=== PATIENT | female | born 1960 | race Caucasian/White ===

== ENCOUNTER 2016-03-14 15:22 | Inpatient (IN) | payer OTHER ==
[~2016-03-14] VITALS: Ht 162.6 cm; Wt 58.1 kg
[2016-03-14 16:52] VITALS: BP 139/63; PULSE 110; TEMP 97.5
[2016-03-14 17:26] VITALS: BP 139/63; PULSE 110; TEMP 97.5
[2016-03-14 20:48] VITALS: BP 107/63; PULSE 110; TEMP 97.8
[2016-03-15] VITALS (7 sets, daily range): BP systolic 101–121; BP diastolic 46–68; PULSE 114–117; TEMP 97.7–98.9
[2016-03-15 07:58] LABS: ADD PATHOLOGY DIFF REVIEW NO
[2016-03-15 08:00] LABS: MEAN CELL VOLUME 97 fl (80.0-100.0); MEAN CORPUSCULAR HGB CONC 34 g/dl (33.0-37.0); MEAN PLATELET VOLUME 12.5 fl (7.4-10.4); PLATELET COUNT 314 K/mm3 (130-400); RED BLOOD COUNT 3.37 M/mm3 (4.10-5.30); REDCELL DISTRIBUTION WIDTH-CV 16.6 % (11.5-14.5); WHITE BLOOD COUNT 19.2 K/mm3 (4.8-10.8)
[2016-03-15 08:04] LABS: HEMATOCRIT 32.7 % (37.0-47.0); MEAN CORPUSCULAR HEMOGLOBIN 33 pg (27.0-31.0)
[2016-03-15 08:15] LABS: ADJUSTED CALCIUM 9.4 mg/dL (8.4-10.2); BILIRUBIN,TOTAL 4.8 mg/dL (0.0-1.0); CALCIUM 8.6 mg/dL (8.4-10.2); CREATININE, serum 0.9 mg/dL (0.52-1.25); POTASSIUM 3.7 mmol/L (3.4-5.0)
[2016-03-15 08:56] LABS: INR 1.5 (0.8-3.0); PROTHROMBIN TIME 16.8 SECONDS (9.7-12.8)
[2016-03-15 11:31] LABS: BAND 1 % (0-10); NEUTROPHILS 86 % (42.0-75.2); TOTAL CELLS COUNTED 100
[2016-03-15 11:34] LABS: HYPOCHROMIA 2+
[2016-03-15 11:35] LABS: POIKILOCYTOSIS 2+; ROULEAUX 1+; SPHEROCYTE 1+; TARGET CELLS 2+
[2016-03-15 14:49] LABS: PH 5 (5-8); SQUAMOUS EPITHELIAL 0-2 /hpf; URINE APPEARANCE Hazy; URINE BACTERIA Rare /hpf; URINE BILIRUBIN Negative (NEGATIVE); URINE BLOOD Negative (NEGATIVE); URINE COLOR Amber; URINE GLUCOSE Negative (NEGATIVE); URINE KETONE Negative (NEGATIVE); URINE RBC 0-2 /hpf; URINE UROBILINOGEN Negative (NEGATIVE); URINE WBC 0-2 /hpf
[2016-03-15 19:15] LABS: PERITONEAL -POLYMORPHONUCLEAR 9.1 % (0-25); PERITONEAL FLUID RBC 0 /mm3 (0-0)
[2016-03-16 00:59] LABS: THYROXINE (T4)-TOTAL 8.6 ug/dL (5.5-11.0)
[2016-03-16 01:40] LABS: THYROID STIMULATING HORMONE 16.4 uIU/mL (0.465-4.680)
[2016-03-16 04:24] VITALS: BP 101/50; PULSE 113; TEMP 98.3
[2016-03-16 07:45] VITALS: BP 107/59; PULSE 71; TEMP 97.8
[2016-03-16 12:16] VITALS: BP 110/52; PULSE 115; TEMP 97.9
[2016-03-16 17:28] VITALS: BP 106/51; PULSE 119; TEMP 98.4
[2016-03-16 19:50] VITALS: BP 105/58; PULSE 108; TEMP 98.3
[2016-03-16 23:18] VITALS: BP 123/58; PULSE 114; TEMP 98.4
[2016-03-17 02:36] VITALS: BP 109/61; PULSE 109; TEMP 97.9
[2016-03-17 07:11] LABS: MEAN CELL VOLUME 97 fl (80.0-100.0); MEAN CORPUSCULAR HGB CONC 33 g/dl (33.0-37.0); MEAN PLATELET VOLUME 12.8 fl (7.4-10.4); PLATELET COUNT 325 K/mm3 (130-400); RED BLOOD COUNT 3.25 M/mm3 (4.10-5.30); REDCELL DISTRIBUTION WIDTH-CV 16.5 % (11.5-14.5)
[2016-03-17 07:23] LABS: ALBUMIN 2.7 gm/dL (3.5-5.0); BILIRUBIN,TOTAL 3.4 mg/dL (0.0-1.0); CREATININE, serum 0.82 mg/dL (0.52-1.25); MAGNESIUM 1.4 mg/dL (1.6-2.3); POTASSIUM 3.5 mmol/L (3.4-5.0); TOTAL PROTEIN 7.4 gm/dL (6.4-8.2)
[2016-03-17 07:33] LABS: ADD PATHOLOGY DIFF REVIEW NO; HEMATOCRIT 31.5 % (37.0-47.0); HEMOGLOBIN 10.4 g/dl (12.5-16.0); MEAN CORPUSCULAR HEMOGLOBIN 32 pg (27.0-31.0); WHITE BLOOD COUNT 20.4 K/mm3 (4.8-10.8)
[2016-03-17 07:52] VITALS: BP 109/60; PULSE 104; TEMP 97.6
[2016-03-17 08:08] LABS: BAND 8 % (0-10); NEUTROPHILS 74 % (42.0-75.2); TOTAL CELLS COUNTED 101
[2016-03-17 08:09] LABS: PLATELET ESTIMATE NORMAL (NORMAL)
[2016-03-17 12:03] VITALS: BP 96/57; PULSE 110; TEMP 97.5
[2016-03-17 17:33] VITALS: BP 118/63; PULSE 115; TEMP 97.7
[2016-03-17 19:29] VITALS: BP 115/66; PULSE 113; TEMP 97.4
[2016-03-18] VITALS (8 sets, daily range): BP systolic 91–124; BP diastolic 51–80; PULSE 102–112; TEMP 97.3–97.9
[2016-03-18 16:21] LABS: MEAN CELL VOLUME 99 fl (80.0-100.0); MEAN CORPUSCULAR HGB CONC 33 g/dl (33.0-37.0); MEAN PLATELET VOLUME 12.3 fl (7.4-10.4); PLATELET COUNT 311 K/mm3 (130-400); RED BLOOD COUNT 3.05 M/mm3 (4.10-5.30); REDCELL DISTRIBUTION WIDTH-CV 16.1 % (11.5-14.5)
[2016-03-18 16:24] LABS: HEMATOCRIT 30.2 % (37.0-47.0); HEMOGLOBIN 10.1 g/dl (12.5-16.0); MEAN CORPUSCULAR HEMOGLOBIN 33 pg (27.0-31.0); WHITE BLOOD COUNT 24.3 K/mm3 (4.8-10.8)
[2016-03-18 16:25] LABS: ADD PATHOLOGY DIFF REVIEW NO
[2016-03-18 16:38] LABS: BAND 24 % (0-10)
[2016-03-18 16:39] LABS: NEUTROPHILS 57 % (42.0-75.2); TOTAL CELLS COUNTED 100
[2016-03-18 16:44] LABS: ADJUSTED CALCIUM 9.3 mg/dL (8.4-10.2); ALBUMIN 2.7 gm/dL (3.5-5.0); BILIRUBIN,TOTAL 3.9 mg/dL (0.0-1.0); CALCIUM 8.3 mg/dL (8.4-10.2); CREATININE, serum 0.98 mg/dL (0.52-1.25); POTASSIUM 3.8 mmol/L (3.4-5.0); TOTAL PROTEIN 7.5 gm/dL (6.4-8.2)
[2016-03-18 18:41] LABS: TOTAL IRON BINDING CAPACITY 147 ug/dL (265-497)
[2016-03-18 19:24] LABS: FERRITIN 579 ng/mL (11-264)
[2016-03-19] VITALS (7 sets, daily range): BP systolic 96–107; BP diastolic 51–67; PULSE 76–109; TEMP 97.4–98.8
[2016-03-19 12:05] LABS: C-REACTIVE PROTEIN 4.6 mg/dL (0.0-0.9)
[2016-03-19 12:58] LABS: PH 5 (5-8); URINE APPEARANCE Turbid; URINE BACTERIA Occasional /hpf; URINE BILIRUBIN Negative (NEGATIVE); URINE BLOOD Negative (NEGATIVE); URINE COLOR Blue; URINE GLUCOSE Negative (NEGATIVE); URINE KETONE Negative (NEGATIVE); URINE RBC None Seen /hpf; URINE UROBILINOGEN Negative (NEGATIVE); URINE WBC None Seen /hpf
[2016-03-20 03:38] VITALS: BP 101/53; PULSE 109; TEMP 98.3
[2016-03-20 07:45] LABS: MEAN CELL VOLUME 98 fl (80.0-100.0); MEAN CORPUSCULAR HGB CONC 33 g/dl (33.0-37.0); MEAN PLATELET VOLUME 12.2 fl (7.4-10.4); PLATELET COUNT 281 K/mm3 (130-400); RED BLOOD COUNT 3.12 M/mm3 (4.10-5.30); REDCELL DISTRIBUTION WIDTH-CV 16.1 % (11.5-14.5); WHITE BLOOD COUNT 19.2 K/mm3 (4.8-10.8)
[2016-03-20 07:47] LABS: HEMATOCRIT 30.5 % (37.0-47.0); MEAN CORPUSCULAR HEMOGLOBIN 32 pg (27.0-31.0)
[2016-03-20 07:48] LABS: INR 1.5 (0.8-3.0); PROTHROMBIN TIME 16.5 SECONDS (9.7-12.8)
[2016-03-20 07:50] LABS: ADD PATHOLOGY DIFF REVIEW NO
[2016-03-20 08:00] LABS: ADJUSTED CALCIUM 9.1 mg/dL (8.4-10.2); ALBUMIN 2.6 gm/dL (3.5-5.0); BILIRUBIN,TOTAL 3.3 mg/dL (0.0-1.0); CREATININE, serum 0.95 mg/dL (0.52-1.25)
[2016-03-20 08:17] VITALS: BP 98/57; PULSE 100; TEMP 98.4
[2016-03-20 08:24] LABS: BASOPHIL 2 % (0-2); NEUTROPHILS 83 % (42.0-75.2); TOTAL CELLS COUNTED 100
[2016-03-20 08:25] LABS: ANISOCYTOSIS 2+; POIKILOCYTOSIS 1+; POLYCHROMASIA 1+; TARGET CELLS 2+
[2016-03-20 11:29] VITALS: BP 106/56; PULSE 107; TEMP 97.4
[2016-03-20] MEDS ORDERED: LASIX 40MG TABL40 MG PO (12:29)
[2016-03-20] MEDS ORDERED: ALDACTONE 100M100 MG PO (12:29)
[2016-03-20] MEDS ORDERED: FLAGYL500 MG PO (12:29)
[2016-03-20] MEDS ORDERED: ZANTAC 150MG T150 MG PO (12:30)
[2016-03-20 12:51] LABS: MAGNESIUM 1.6 mg/dL (1.6-2.3)
[2016-03-20] MEDS ORDERED: KLOR-CON M2020 MEQ PO (14:57)
[2016-03-21 22:27] LABS: MAG AB IGM NEGATIVE (NEGATIVE)
== END 2016-03-20 15:53 | disposition home or self-care (01) | DRG 433 ==
LOC: MEDICAL 15:22 → SPACE 16:17 → MEDICAL 16:17
PROVIDERS: Internal Medicine; Internal Medicine Gastroenterology
PROC: 0W9G3ZX Drainage of Peritoneal Cavity, Percutaneous Approach, Diagnostic (ICD-10-PCS; principal; 2016-03-15)
PROC: 0DB68ZX Excision of Stomach, Via Natural or Artificial Opening Endoscopic, Diagnostic (ICD-10-PCS; 2016-03-18)
PROC: 0DBE8ZX Excision of Large Intestine, Via Natural or Artificial Opening Endoscopic, Diagnostic (ICD-10-PCS; 2016-03-18)
PROC: 0DB98ZX Excision of Duodenum, Via Natural or Artificial Opening Endoscopic, Diagnostic (ICD-10-PCS; 2016-03-18 07:00)
DX: K70.31 Alcoholic cirrhosis of liver with ascites (principal); E44.0 Moderate protein-calorie malnutrition; J90 Pleural effusion, not elsewhere classified; K29.30 Chronic superficial gastritis without bleeding; E87.6 Hypokalemia; E83.42 Hypomagnesemia; K44.9 Diaphragmatic hernia without obstruction or gangrene; K72.90 Hepatic failure, unspecified without coma; F17.210 Nicotine dependence, cigarettes, uncomplicated; F10.10 Alcohol abuse, uncomplicated
CPT/HCPCS: 99223-AI; 99232-AI; 99233-AI; 99239; J0698; J1940; J2250; J2543; J2704; J3430; J3475; J7030; J7050

== ENCOUNTER 2016-04-18 11:02 | Inpatient (IN) | payer OTHER ==
[2016-04-18] VITALS (360 sets, daily range): BP systolic 100–120; BP diastolic 61–78; PULSE 110–117; TEMP 97.4–98.7; O2SAT 98–100
[~2016-04-18] VITALS: Ht 162.6 cm; Wt 49.7 kg
[~2016-04-18 11:02] MED LIST: ALDACTONE 100M100 MG PO; FLAGYL500 MG PO; KLOR-CON M2020 MEQ PO; LASIX 40MG TABL40 MG PO; ZANTAC 150MG T150 MG PO
[2016-04-18 12:00] LABS: MEAN CELL VOLUME 90 fl (80.0-100.0); MEAN CORPUSCULAR HGB CONC 35 g/dl (33.0-37.0); MEAN PLATELET VOLUME 12.2 fl (7.4-10.4); PLATELET COUNT 262 K/mm3 (130-400); RED BLOOD COUNT 3.52 M/mm3 (4.10-5.30); REDCELL DISTRIBUTION WIDTH-CV 13.6 % (11.5-14.5)
[2016-04-18 12:08] LABS: HEMATOCRIT 31.8 % (37.0-47.0); MEAN CORPUSCULAR HEMOGLOBIN 31 pg (27.0-31.0); WHITE BLOOD COUNT 28.6 K/mm3 (4.8-10.8)
[2016-04-18 12:09] LABS: ADD PATHOLOGY DIFF REVIEW NO
[2016-04-18 12:26] LABS: PH 5 (5-8); SQUAMOUS EPITHELIAL None Seen /hpf; URINE APPEARANCE Cloudy; URINE BACTERIA Rare /hpf; URINE BILIRUBIN Negative (NEGATIVE); URINE BLOOD Negative (NEGATIVE); URINE COLOR Amber; URINE GLUCOSE Negative (NEGATIVE); URINE KETONE Negative (NEGATIVE); URINE RBC 0-2 /hpf; URINE UROBILINOGEN Negative (NEGATIVE); URINE WBC 0-2 /hpf
[2016-04-18 12:38] LABS: BASOPHIL 1 % (0-2); METAMYELOCYTE 3 % (0-0); MYELOCYTE 2 % (0-0); NEUTROPHILS 49 % (42.0-75.2)
[2016-04-18 12:39] LABS: PLATELET ESTIMATE NORMAL (NORMAL); TOXIC GRANULATION PRESENT
[2016-04-18 12:41] LABS: ANISOCYTOSIS 1+; BAND 30 % (0-10); HYPOCHROMIA 1+; POLYCHROMASIA 1+; TOTAL CELLS COUNTED 200
[2016-04-18 12:53] LABS: INR 1.4 (0.8-3.0); PROTHROMBIN TIME 15.2 SECONDS (9.7-12.8)
[2016-04-18 13:41] LABS: ADJUSTED CALCIUM 10.5 mg/dL (8.4-10.2); ALBUMIN 3.5 gm/dL (3.5-5.0); BILIRUBIN,TOTAL 2.8 mg/dL (0.0-1.0); CALCIUM 10.1 mg/dL (8.4-10.2); MAGNESIUM 1.8 mg/dL (1.6-2.3); POTASSIUM 4.8 mmol/L (3.4-5.0)
[2016-04-18 13:57] LABS: CREATININE, serum 5.1 mg/dL (0.52-1.25)
[2016-04-18 14:58] LABS: ARTERIAL BLOOD GAS BASE EXCESS -7.8 (-2-2); ARTERIAL BLOOD GAS HCO3 12.4 meq/L (22-26); ARTERIAL BLOOD GAS PHT 7.49 C (7.35-7.45); ARTERIAL BLOOD GAS PO2 112.3 mmHg (80-100); ARTERIAL BLOOD GAS PO2T 112.3 (80-100); ARTERIAL BLOOD GAS pH 7.49 (7.35-7.45); OXYHEMOGLOBIN 96.5 %
[2016-04-18 14:59] LABS: ATS? YES
[2016-04-18 17:33] LABS: VENOUS BLOOD GAS BE -9.6 (-4-4); VENOUS BLOOD GAS SAO2 70.9 % (60-80)
[2016-04-18 17:34] LABS: VENOUS BLOOD GAS SITE CENTRAL LINE
[2016-04-18 18:06] LABS: AMPHETAMINE URINE NEGATIVE; BARBITURATES URINE NEGATIVE; BENZODIAZEPINES URINE NEGATIVE; BUPRENORPHINE URINE NEGATIVE; METHADONE URINE NEGATIVE; OPIATES URINE POSITIVE; OXYCODONE URINE NEGATIVE; PHENCYCLIDINE URINE NEGATIVE; PROPOXYPHENE URINE NEGATIVE; THC CANNABINOIDS URINE NEGATIVE
[2016-04-18 21:22] LABS: HYALINE CAST >12 /lpf; PH 5 (5-8); SQUAMOUS EPITHELIAL 0-2 /hpf; URINE APPEARANCE Hazy; URINE BACTERIA Rare /hpf; URINE BILIRUBIN Negative (NEGATIVE); URINE BLOOD Negative (NEGATIVE); URINE GLUCOSE Negative (NEGATIVE); URINE KETONE Negative (NEGATIVE); URINE RBC 0-2 /hpf; URINE UROBILINOGEN Negative (NEGATIVE)
[2016-04-18 21:23] LABS: URINE COLOR Yellow
[2016-04-18 21:30] LABS: VENOUS BLOOD GAS BE -11.9 (-4-4); VENOUS BLOOD GAS SITE CENTRAL LINE
[2016-04-18 21:45] LABS: ADJUSTED CALCIUM 9.2 mg/dL (8.4-10.2); ALBUMIN 2.5 gm/dL (3.5-5.0); CREATININE, serum 3.81 mg/dL (0.52-1.25); POTASSIUM 3.8 mmol/L (3.4-5.0)
[2016-04-19] VITALS (1244 sets, daily range): BP systolic 95–121; BP diastolic 50–63; PULSE 95–112; TEMP 97–99; O2SAT 64–100
[2016-04-19 01:49] LABS: VENOUS BLOOD GAS BE -7.8 (-4-4); VENOUS BLOOD GAS SAO2 74.6 % (60-80); VENOUS BLOOD GAS SITE CENTRAL LINE
[2016-04-19 04:57] LABS: VENOUS BLOOD GAS BE -5.8 (-4-4); VENOUS BLOOD GAS SAO2 70.2 % (60-80); VENOUS BLOOD GAS SITE CENTRAL LINE
[2016-04-19 05:18] LABS: INR 1.6 (0.8-3.0); MEAN CELL VOLUME 87 fl (80.0-100.0); MEAN CORPUSCULAR HGB CONC 36 g/dl (33.0-37.0); MEAN PLATELET VOLUME 11.9 fl (7.4-10.4); PLATELET COUNT 184 K/mm3 (130-400); PROTHROMBIN TIME 17.9 SECONDS (9.7-12.8); RED BLOOD COUNT 2.59 M/mm3 (4.10-5.30); REDCELL DISTRIBUTION WIDTH-CV 13.4 % (11.5-14.5)
[2016-04-19 05:21] LABS: PARTIAL THROMBOPLASTIN TIME 34.2 SECONDS (26.0-37.0)
[2016-04-19 05:28] LABS: ADJUSTED CALCIUM 8.8 mg/dL (8.4-10.2); ALBUMIN 2.5 gm/dL (3.5-5.0); CALCIUM 7.6 mg/dL (8.4-10.2); CREATININE, serum 3.24 mg/dL (0.52-1.25); POTASSIUM 3.6 mmol/L (3.4-5.0); TOTAL PROTEIN 6.9 gm/dL (6.4-8.2)
[2016-04-19 05:32] LABS: ARTERIAL BLOOD GAS pH 7.54 (7.35-7.45)
[2016-04-19 05:34] LABS: ARTERIAL BLD GAS O2 SATURATION 96.1 % (92-100); ARTERIAL BLD GAS TCO2 CT 15.7; ARTERIAL BLOOD GAS BASE EXCESS -5.9 (-2-2); ARTERIAL BLOOD GAS HCO3 15.1 meq/L (22-26); ARTERIAL BLOOD GAS PO2 81.8 mmHg (80-100)
[2016-04-19 05:35] LABS: ALLEN TEST YES; ALLENS TEST RESULT PASS; ATS? YES
[2016-04-19 05:36] LABS: ADD PATHOLOGY DIFF REVIEW NO; HEMATOCRIT 22.6 % (37.0-47.0); HEMOGLOBIN 8.2 g/dl (12.5-16.0); MEAN CORPUSCULAR HEMOGLOBIN 32 pg (27.0-31.0); WHITE BLOOD COUNT 21.1 K/mm3 (4.8-10.8)
[2016-04-19 06:56] LABS: BAND 37 % (0-10); METAMYELOCYTE 1 % (0-0); NEUTROPHILS 50 % (42.0-75.2); TOTAL CELLS COUNTED 100
[2016-04-20] VITALS (1296 sets, daily range): BP systolic 116–152; BP diastolic 62–91; PULSE 98–107; TEMP 97.3–98.4; O2SAT 82–100
[2016-04-20 05:35] LABS: MEAN CELL VOLUME 90 fl (80.0-100.0); MEAN CORPUSCULAR HGB CONC 35 g/dl (33.0-37.0); MEAN PLATELET VOLUME 11.5 fl (7.4-10.4); PLATELET COUNT 171 K/mm3 (130-400); REDCELL DISTRIBUTION WIDTH-CV 13.8 % (11.5-14.5)
[2016-04-20 05:37] LABS: ADD PATHOLOGY DIFF REVIEW NO; HEMATOCRIT 22.4 % (37.0-47.0); HEMOGLOBIN 7.9 g/dl (12.5-16.0); MEAN CORPUSCULAR HEMOGLOBIN 32 pg (27.0-31.0); WHITE BLOOD COUNT 23.9 K/mm3 (4.8-10.8)
[2016-04-20 05:43] LABS: INR 1.6 (0.8-3.0); PROTHROMBIN TIME 18.1 SECONDS (9.7-12.8)
[2016-04-20 05:46] LABS: ADJUSTED CALCIUM 8.2 mg/dL (8.4-10.2); ALBUMIN 2.1 gm/dL (3.5-5.0); BILIRUBIN,TOTAL 1.9 mg/dL (0.0-1.0); CALCIUM 6.7 mg/dL (8.4-10.2); CREATININE, serum 2.21 mg/dL (0.52-1.25); PARTIAL THROMBOPLASTIN TIME 35.3 SECONDS (26.0-37.0); TOTAL PROTEIN 5.9 gm/dL (6.4-8.2)
[2016-04-20 05:57] LABS: POTASSIUM 2.6 mmol/L (3.4-5.0)
[2016-04-20 06:00] LABS: BAND 15 % (0-10); NEUTROPHILS 70 % (42.0-75.2); TOTAL CELLS COUNTED 100
[2016-04-20 06:06] LABS: ARTERIAL BLOOD GAS pH 7.45 (7.35-7.45)
[2016-04-20 06:08] LABS: ARTERIAL BLD GAS O2 SATURATION 84.9 % (92-100); ARTERIAL BLD GAS TCO2 CT 19.4; ARTERIAL BLOOD GAS BASE EXCESS -8.4 (-2-2); ARTERIAL BLOOD GAS HCO3 13.2 meq/L (22-26); ARTERIAL BLOOD GAS PHT 7.45 C (7.35-7.45)
[2016-04-20 06:09] LABS: ARTERIAL BLOOD GAS PO2T 51 (80-100)
[2016-04-20 06:27] LABS: ALLEN TEST YES; ALLENS TEST RESULT PASS; ATS? YES
[2016-04-20 13:22] LABS: CREATININE, serum 2.23 mg/dL (0.52-1.25)
[2016-04-21] VITALS (1271 sets, daily range): BP systolic 107–140; BP diastolic 63–81; PULSE 99–116; TEMP 97–98.6; O2SAT 67–100
[2016-04-21 05:24] LABS: ARTERIAL BLD GAS TCO2 CT 12.9; ARTERIAL BLOOD GAS BASE EXCESS -11.3 (-2-2); ARTERIAL BLOOD GAS HCO3 12.3 meq/L (22-26); ARTERIAL BLOOD GAS PHT 7.37 C (7.35-7.45); ARTERIAL BLOOD GAS pH 7.37 (7.35-7.45); OXYHEMOGLOBIN 93.2 %
[2016-04-21 05:25] LABS: ARTERIAL BLOOD GAS pH 7.37 (7.35-7.45)
[2016-04-21 05:27] LABS: ARTERIAL BLOOD GAS BASE EXCESS -11.3 (-2-2); ARTERIAL BLOOD GAS HCO3 12.3 meq/L (22-26)
[2016-04-21 05:28] LABS: ALLEN TEST YES; ALLENS TEST RESULT PASS; ATS? YES
[2016-04-21 05:35] LABS: MEAN CELL VOLUME 92 fl (80.0-100.0); MEAN CORPUSCULAR HGB CONC 34 g/dl (33.0-37.0); MEAN PLATELET VOLUME 10.6 fl (7.4-10.4); PLATELET COUNT 166 K/mm3 (130-400); RED BLOOD COUNT 3.03 M/mm3 (4.10-5.30); REDCELL DISTRIBUTION WIDTH-CV 14.6 % (11.5-14.5)
[2016-04-21 05:45] LABS: ADJUSTED CALCIUM 9.2 mg/dL (8.4-10.2); ALBUMIN 2.2 gm/dL (3.5-5.0); BILIRUBIN,TOTAL 2.8 mg/dL (0.0-1.0); CALCIUM 7.8 mg/dL (8.4-10.2); CREATININE, serum 2.06 mg/dL (0.52-1.25); TOTAL PROTEIN 6.3 gm/dL (6.4-8.2)
[2016-04-21 05:57] LABS: ADD PATHOLOGY DIFF REVIEW NO; HEMOGLOBIN 9.4 g/dl (12.5-16.0); MEAN CORPUSCULAR HEMOGLOBIN 31 pg (27.0-31.0); WHITE BLOOD COUNT 39.3 K/mm3 (4.8-10.8)
[2016-04-21 06:56] LABS: BAND 16 % (0-10); BASOPHIL 0 % (0-2); METAMYELOCYTE 2 % (0-0); MYELOCYTE 1 % (0-0); NEUTROPHILS 75 % (42.0-75.2); PLATELET ESTIMATE NORMAL (NORMAL); TOXIC GRANULATION PRESENT
[2016-04-21 07:04] LABS: INR 1.7 (0.8-3.0); PROTHROMBIN TIME 18.8 SECONDS (9.7-12.8)
[2016-04-21 07:10] LABS: PARTIAL THROMBOPLASTIN TIME 91.5 SECONDS (26.0-37.0); TOTAL CELLS COUNTED 300
[2016-04-21 10:37] LABS: ATS? YES
[2016-04-22] VITALS (663 sets, daily range): BP systolic 89–94; BP diastolic 50–58; PULSE 94–106; TEMP 97.1–98.4; O2SAT 76–100
[2016-04-22 05:50] LABS: ADJUSTED CALCIUM 9.7 mg/dL (8.4-10.2); ALBUMIN 1.9 gm/dL (3.5-5.0); BILIRUBIN,TOTAL 2.5 mg/dL (0.0-1.0); CREATININE, serum 1.92 mg/dL (0.52-1.25); POTASSIUM 3.7 mmol/L (3.4-5.0); TOTAL PROTEIN 5.5 gm/dL (6.4-8.2)
[2016-04-22 05:55] LABS: MEAN CELL VOLUME 94 fl (80.0-100.0); MEAN CORPUSCULAR HGB CONC 34 g/dl (33.0-37.0); PLATELET COUNT 103 K/mm3 (130-400); RED BLOOD COUNT 2.74 M/mm3 (4.10-5.30); REDCELL DISTRIBUTION WIDTH-CV 14.8 % (11.5-14.5)
[2016-04-22 05:57] LABS: INR 2.1 (0.8-3.0); PROTHROMBIN TIME 23.9 SECONDS (9.7-12.8)
[2016-04-22 06:04] LABS: HEMATOCRIT 25.7 % (37.0-47.0); HEMOGLOBIN 8.6 g/dl (12.5-16.0); MEAN CORPUSCULAR HEMOGLOBIN 31 pg (27.0-31.0)
[2016-04-22 06:05] LABS: ADD PATHOLOGY DIFF REVIEW NO
[2016-04-22 06:22] LABS: PARTIAL THROMBOPLASTIN TIME 92.7 SECONDS (26.0-37.0)
[2016-04-22 08:08] LABS: EOSINOPHIL 2 % (0-4); NEUTROPHILS 78 % (42.0-75.2)
[2016-04-22 08:09] LABS: BAND 13 % (0-10); MYELOCYTE 1 % (0-0); PLATELET ESTIMATE DECREASED (NORMAL); TOTAL CELLS COUNTED 100
[2016-04-22 08:10] LABS: TOXIC GRANULATION PRESENT
[2016-04-22 10:18] LABS: BENZODIAZEPINE SCREEN BLOOD Not Detected (()); DRUG SCREEN BLD - ALCOHOL None Detected (()); TRICYCLIC SCREEN BLOOD Not Detected (())
[2016-04-23 10:00] LABS: SALICYLATE SCREEN BLOOD Not Detected (())
== END 2016-04-22 15:40 | disposition expired | DRG 871 ==
LOC: COL.ER 11:02 → ICU 15:10
PROVIDERS: Emergency Medicine; Family Medicine; Internal Medicine; Nurse Practitioner
PROC: 02HV33Z Insertion of Infusion Device into Superior Vena Cava, Percutaneous Approach (ICD-10-PCS; principal; 2016-04-18)
DX: A41.9 Sepsis, unspecified organism (principal); J96.01 Acute respiratory failure with hypoxia; E43 Unspecified severe protein-calorie malnutrition; J81.0 Acute pulmonary edema; G93.41 Metabolic encephalopathy; A04.7 Enterocolitis due to Clostridium difficile; N17.9 Acute kidney failure, unspecified; Z68.1 Body mass index [BMI] 19.9 or less, adult; E87.1 Hypo-osmolality and hyponatremia; E87.3 Alkalosis; E87.2 Acidosis; Z51.5 Encounter for palliative care; Z66 Do not resuscitate; K70.31 Alcoholic cirrhosis of liver with ascites; F10.10 Alcohol abuse, uncomplicated; F17.210 Nicotine dependence, cigarettes, uncomplicated; K70.40 Alcoholic hepatic failure without coma
CPT/HCPCS: 99223-AI; 99232-AI; 99233-AI; A4315; C1751; C9113; J0692; J0696; J1644; J1720; J1940; J1956; J2060; J2270; J3360; J3370; J3411; J3480; J7030; J7040